=== PATIENT | male | born 1925 | race Caucasian/White ===

== ENCOUNTER 2016-09-29 11:09 | Observation (INO) | payer MEDICARE, BC ==
[2016-09-29] MEDS ORDERED: NS 0.9% 1000 ML* 1,000 ML IV ONE (14:08)
[2016-09-29 14:54] LABS: Urine Bilirubin Negative (Negative); Urine Glucose Negative (Negative); Urine Nitrite Negative (Negative)
[2016-09-29 15:07] LABS: Hematocrit 29 % (42-52); Hemoglobin 9.7 g/dl (14.0-18.0); Mean Corpuscular HGB Conc 34 g/dl (31-36); Mean Corpuscular Hemoglobin 32 pg (27-31); Mean Corpuscular Volume 94 fL (80-94); Mean Platelet Volume 7 um3 (7.4-10.4); Red Blood Count 3.05 10^6/ul (4.0-5.4); Red Cell Distribution Width 13 % (10.5-15)
--- NOTE | 2016-09-29 15:17 | RAD ---
INDICATION: Altered mental status. Pneumonia. COMPARISON: Chest x-ray October 19, 2012 TECHNIQUE: An AP portable view obtained at 1420 hours is submitted. FINDINGS: Bones/Soft Tissues: There are no acute bony findings. There is sternotomy. There is a left-sided cardiac pacemaker Cardiomediastinal: The cardiomediastinal silhouette is mildly enlarged. Lungs: There are no infiltrates. Pleura: There are no pleural effusions. Other: None IMPRESSION: NO ACTIVE CARDIOPULMONARY DISEASE.
[2016-09-29 15:24] LABS: Troponin I 0.03 ng/mL (<0.04)
[2016-09-29 15:30] LABS: ALT 9 U/L (7-52); AST 16 U/L (13-39); Albumin 3.3 g/dL (3.2-5.2); Alkaline Phosphatase 110 U/L (34-104); Anion Gap 6 mmol/L (2-11); BUN/Creatinine Ratio 12.2 (8-20); Blood Urea Nitrogen 21 mg/dL (6-24); CO2 Carbon Dioxide 23 mmol/L (22-32); Calcium 8.6 mg/dL (8.6-10.3); Chloride 99 mmol/L (101-111); Creatine Kinase 113 U/L (10-223); EGFR African American 48.4 (>60); EGFR Non-African American 37.6 (>60); Globulin 2.5 g/dL (2-4); Glucose 81 mg/dL (70-100); Potassium 4.2 mmol/L (3.5-5.0); Sodium 128 mmol/L (133-145); Total Protein 5.8 g/dL (6.4-8.9)
[2016-09-29 15:48] LABS: Alcohol < 10 mg/dL (<10)
--- NOTE | 2016-09-29 16:37 | RAD ---
INDICATION: Altered mental status, expressive aphasia, confusion. COMPARISON: Comparison is made with prior CTs of the brain from June 27, 2015 and October 19, 2012. TECHNIQUE: Contiguous axial sections of the brain were obtained from the skull base to the vertex without contrast. FINDINGS: The ventricles, cisterns and sulci are enlarged consistent with diffuse atrophy. There are multiple focal areas of decreased density in the subcortical and periventricular white matter suggestive of moderate to severe chronic small vessel ischemic changes. There are old bilateral lacunar infarcts present within the external capsules. No other focal abnormality or mass effect is seen. There is no evidence for hemorrhage. There is a mass present in the left maxillary sinus extending into the nasal cavity which appears to have increased in size from the prior 2 exams. The paranasal sinuses and mastoid air cells otherwise appear clear. IMPRESSION: 1. NO EVIDENCE FOR GROSS ACUTE INFARCT, MASS EFFECT OR HEMORRHAGE. 2. ATROPHY, SEVERE CHRONIC SMALL VESSEL ISCHEMIC CHANGES AND OLD LACUNAR INFARCTS. 3. MASS IN THE LEFT MAXILLARY SINUS EXTENDING INTO THE NASAL CAVITY INCREASED IN SIZE.
--- NOTE | 2016-09-29 16:40 | RAD ---
INDICATION: 89-year-old with neck pain. No known trauma COMPARISON: None TECHNIQUE: Noncontrast axial source images was performed from the skull base to the thoracic inlet. Coronal and and sagittal reformatted images were generated. FINDINGS: Vertebrae: There is no fracture or acute focal bony lesion. There is osteopenia. There is advanced degenerative disc disease from C5 through T2 with advanced narrowing, endplate sclerosis, and uncinate process spurring. There is multilevel facet arthropathy. There is multilevel, bilateral foraminal narrowing at these levels. There is moderate degenerative disc disease at C3-C4 and C4-C5 Alignment: The craniocervical junction appears normal. There is a 3 mm anterolisthesis of C4 on C5 which is likely on a degenerative basis. Central Canal: There are no significant CT abnormalities of the central canal or foramina. MR imaging is a more sensitive method to evaluate the canal and foramina. Intervertebral disc spaces: The disc spaces are maintained. Brain: The visualized brain appears unremarkable. Soft tissues: The visualized soft tissue elements of the neck are unremarkable. The prevertebral soft tissues appear normal. The lung apices are clear. IMPRESSION: ADVANCED MULTILEVEL DEGENERATIVE DISC DISEASE. NO ACUTE FINDINGS.
[2016-09-29 17:02] LABS: Magnesium 1.6 mg/dL (1.9-2.7)
[2016-09-29] MEDS ORDERED: oxyCODONE/Acetamin 5/325 MG* TAB PO PRN (17:26)
[2016-09-29] MEDS ORDERED: Acetaminophen TAB* 325 MG PO PRN (17:26)
[2016-09-29] MEDS ORDERED: Fluticasone NASAL SPRAY 50MCG* 16 gm SPRAY BTL BOTH NARES PRN (17:30)
[2016-09-29] MEDS ORDERED: NS 0.9% 1000 ML* 1,000 ML IV SCH (17:30)
[2016-09-29] MEDS ORDERED: Carvedilol TAB* 6.25 MG PO SCH (18:00)
--- NOTE | 2016-09-29 19:22 | ED ---
Silvia Mcintyre Thomas, scribed for Ezra Erazo MD on 09/29/16 at 1314 . Altered Mental Status - HPI Summary HPI Summary: Pt is an 89 y/o male presenting to the ED with AMS. is in the room and is historian of much information. The pt's reports that the pt has been very confused for 24 hours. She says that he will "start a sentence and not be able to finish." She notes that he has had "trouble finding words" in the last 24 hours, but that since his last stroke he has had some minor "trouble finding words" as well. The notes acute on chronic dysuria, worsening 24 hours ago. Additionally c/o dizziness (onset 24 hours) and unstable gait (onset 24 hours). The pt denies arm weakness, DAVILA, blindspots, double vision. Before ED visit, pt was scheduled for a CT Brain, CT neck, and CTA tomorrow. PMHx: CHF, TIA, HLD. PSHx: pacemaker ,CABG, back surgeries. Pt denies PMHx of DM, A-Fib. Pt is on Eliquis, a statin, and meds that decrease his urinary frequency. Pt does not take ASA. Two days ago, the pt fell and only injured his hand. The pt denies head trauma, but the pt's does note that the pt had decreased responsiveness for some time after the fall. Per , the pt's back has been hurting since his fall. The notes that the pt was able to perform finger- nose touches yesterday. - History Of Current Complaint Chief Complaint: EDAltMentalStatus Stated Complaint: AMS,DIZZY,CANT UNRINATE Time Seen by Provider: 09/29/16 12:41 Hx Obtained From: Patient, Family/Bone Drier Operator - Last Known Well Date: Sx started 24 hours ago Character: Confusion Aggravating Factor(s): Nothing Alleviating Factor(s): Nothing Associated Signs And Symptoms: Positive: Dizziness - Allergies/Home Medications Allergies/Adverse Reactions: Allergies Allergy/AdvReac Type Severity Reaction Status Date / Time No Known Allergies Allergy Verified 05/08/14 14:36 Home Medications: Home Medications Bupropion XL* [Wellbutrin XL *] 150 mg PO DAILY 09/29/16 [History Confirmed ] Febuxostat(NF) [Uloric(NF)] 40 mg PO DAILY 09/29/16 [History Confirmed 09/29/16] Fluticasone NASAL SPRAY 50MCG* [Flonase NASAL SPRAY 50MCG*] 2 spray BOTH NARES DAILY PRN 09/29/16 [History Confirmed 09/29/16] Pantoprazole TAB (NF) [Protonix TAB (NF)] 40 mg PO BID 09/29/16 [History Confirmed 09/29/16] Sucralfate SUSP (NF) [Carafate SUSP (NF)] 10 ml PO BID 09/29/16 [History Confirmed 09/29/16] Tamsulosin CAP* [Flomax CAP*] 0.4 mg PO DAILY 09/29/16 [History Confirmed ] PMH/Surg Hx/FS Hx/Imm Hx Previously Healthy: No Endocrine/Hematology History: Reports: Hx Anticoagulant Therapy - COUMADIN, Hx Anemia Denies: Hx Diabetes, Hx Thyroid Disease Cardiovascular History: Reports: Hx Congestive Heart Failure, Hx Coronary Artery Disease, Hx Hypercholesterolemia, Hx Pacemaker/ICD - 2002, Other Cardiovascular Problems/Disorders - cardiomyopathy, CVA, CAROTID ENDARTECTOMY, ABLATION Denies: Hx Hypertension Respiratory History: Reports: Hx Sleep Apnea - CPap Denies: Hx Asthma, Hx Chronic Obstructive Pulmonary Disease (COPD) GI History: Reports: Hx Gastrointestinal Bleed, Other GI Disorders - GI Bleed in the past Denies: Hx Ulcer History: Reports: Hx Chronic Renal Failure - stage III, Hx Renal Disease - low potassium diet as per Dr Altman, Other Problems/Disorders - Renal insufficiency Musculoskeletal History: Reports: Hx Arthritis, Hx Back Problems - back surgery , Hx Gout Comment Only: Other Musculoskeletal History - GOUT Sensory History: Reports: Hx Contacts or Glasses, Hx Deafness Denies: Hx Hearing Aid Opthamlomology History: Reports: Hx Contacts or Glasses Neurological History: Reports: Hx Transient Ischemic Attacks (TIA) - Surgical History Surgery Procedure, Year, and Place: CABG , CARTID ENDARTECTOMY, ABLATION, PACEMAKER, BACK SX. Infectious Disease History: No Infectious Disease History: Denies: Hx Clostridium Difficile, Hx Hepatitis, Hx Human Immunodeficiency Virus (HIV), Hx of Known/Suspected MRSA, Hx Shingles, Hx Tuberculosis, Hx Known/ Suspected VRE, Hx Known/Suspected VRSA, History Other Infectious Disease, Traveled Outside the [place] in Last 30 Days - Family History Known Family History: Negative: Cardiac Disease, Diabetes - Social History Alcohol Use: None Substance Use Type: Reports: None Smoking Status (MU): Never Smoked Tobacco Review of Systems Positive: Other - NEG: blindspots . Negative: Diplopia Positive: dysuria - acute on chronic Neurological: Other - POS: confusion; POS: "trouble finding words"; POS: dizziness; POS: unstable gait Negative: Weakness - arm All Other Systems Reviewed And Are Negative: Yes Physical Exam - Summary Physical Exam Summary: The patient is well-nourished in no acute distress and in no acute pain. The skin is warm and dry and skin color reflects adequate perfusion. Ecchymosis on the R PSIS. HEENT: Tongue midline. The head is normocephalic and atraumatic. The pupils are equal and reactive. The conjunctivae are clear and without drainage. Nares are patent and without drainage. Mouth reveals moist mucous membranes and the throat is without erythema and exudate. The external ears are intact. The patient has a hearing aid. Neck is supple with full range of motion and non-tender. There are no carotid bruits. There is no neck vein distension. Respiratory: Chest is non-tender. Lungs are clear to auscultation and breath sounds are symmetrical and equal. Cardiovascular: There is a holosystolic murmur. Hear is regular rate and rhythm. No rub auscultated. There is no peripheral edema and pulses are symmetrical and equal. Abdomen: The abdomen is soft and non-tender. There are normal bowel sounds heard in all four quadrants and there is no organomegaly palpated. Musculoskeletal: There is no back pain noted. Extremities are non-tender with full range of motion. There is good capillary refill. There is no peripheral edema or calf tenderness elicited. Neurological: Confused. Knows the day of week but not month. Does not know birthday. Expressive aphasia. Able to finger-nose his R hand but not L hand. Cannot do heel-schofield. No facial droop. The patient has symmetrical motor strength in all four extremities. Cranial nerves are grossly intact except deglutition. Deep tendon reflexes are symmetrical and equal in all four extremities. No protonator drift. Psychiatric: The patient has an appropriate affect and does not exhibit any anxiety or depression. Triage Information Reviewed: Yes Vital Signs On Initial Exam: Initial Vitals Temp Pulse Resp BP 97.9 F 80 20 121/61 09/29/16 11:15 09/29/16 11:15 09/29/16 11:15 09/29/16 11:15 Vital Signs Reviewed: Yes - Miguel Coma Scale Coma Scale Total: 14 Diagnostics - Vital Signs Vital Signs Temp Pulse Resp BP Pulse Ox 09/29/16 12:04 98.1 F 80 16 136/68 100 09/29/16 11:15 97.9 F 80 20 121/61 - Laboratory Lab Results: Lab Results 09/29/16 09/29/16 09/29/16 Range/Units 14:42 14:56 14:56 WBC 6.0 (3.5-10.8) 10^3/ul RBC 3.05 L (4.0-5.4) 10^6/ul Hgb 9.7 L (14.0-18.0) g/dl Hct 29 L (42-52) % MCV 94 (80-94) fL MCH 32 H (27-31) pg MCHC 34 (31-36) g/dl RDW 13 (10.5-15) % Plt Count 166 (150-450) 10^3/ul MPV 7 L (7.4-10.4) um3 Neut % (Auto) 64.3 (38-83) % Lymph % (Auto) 21.3 L (25-47) % Stewart % (Auto) 8.2 (1-9) % Eos % (Auto) 5.1 (0-6) % Baso % (Auto) 1.1 (0-2) % Absolute Neuts (auto) 3.8 (1.5-7.7) 10^3/ul Absolute Lymphs (auto) 1.3 (1.0-4.8) 10^3/ul Absolute Monos (auto) 0.5 (0-0.8) 10^3/ul Absolute Eos (auto) 0.3 (0-0.6) 10^3/ul Absolute Basos (auto) 0.1 (0-0.2) 10^3/ul Absolute Nucleated RBC 0 10^3/ul Nucleated RBC % 0 INR (Anticoag Therapy) 1.32 H (0.89-1.11) Sodium (133-145) mmol/L Potassium (3.5-5.0) mmol/L Chloride (101-111) mmol/L Carbon Dioxide (22-32) mmol/L Anion Gap (2-11) mmol/L BUN (6-24) mg/dL Creatinine (0.67-1.17) mg/dL Est GFR ( Amer) (>60) Est GFR (Non-Af Amer) (>60) BUN/Creatinine Ratio (8-20) Glucose (70-100) mg/dL Lactic Acid (0.5-2.0) mmol/L Calcium (8.6-10.3) mg/dL Magnesium (1.9-2.7) mg/dL Total Bilirubin (0.2-1.0) mg/dL AST (13-39) U/L ALT (7-52) U/L Alkaline Phosphatase (34-104) U/L Ammonia (16-53) mol/L Total Creatine Kinase (10-223) U/L Troponin I (<0.04) ng/mL C-Reactive Protein (< 5.00) mg/L Total Protein (6.4-8.9) g/dL Albumin (3.2-5.2) g/dL Globulin (2-4) g/dL Albumin/Globulin Ratio (1-3) Urine Color Yellow Urine Appearance Clear Urine pH 6.0 (5-9) Ur Specific Shunk 1.006 L (1.010-1.030) Urine Protein Negative (Negative) Urine Ketones Negative (Negative) Urine Blood Negative (Negative) Urine Nitrate Negative (Negative) Urine Bilirubin Negative (Negative) Urine Urobilinogen Negative (Negative) Ur Leukocyte Esterase Negative (Negative) Urine Glucose Negative (Negative) Serum Alcohol (<10) mg/dL 09/29/16 09/29/16 09/29/16 Range/Units 14:56 14:56 14:56 WBC (3.5-10.8) 10^3/ul RBC (4.0-5.4) 10^6/ul Hgb (14.0-18.0) g/dl Hct (42-52) % MCV (80-94) fL MCH (27-31) pg MCHC (31-36) g/dl RDW (10.5-15) % Plt Count (150-450) 10^3/ul MPV (7.4-10.4) um3 Neut % (Auto) (38-83) % Lymph % (Auto) (25-47) % Stewart % (Auto) (1-9) % Eos % (Auto) (0-6) % Baso % (Auto) (0-2) % Absolute Neuts (auto) (1.5-7.7) 10^3/ul Absolute Lymphs (auto) (1.0-4.8) 10^3/ul Absolute Monos (auto) (0-0.8) 10^3/ul Absolute Eos (auto) (0-0.6) 10^3/ul Absolute Basos (auto) (0-0.2) 10^3/ul Absolute Nucleated RBC 10^3/ul Nucleated RBC % INR (Anticoag Therapy) (0.89-1.11) Sodium 128 L (133-145) mmol/L Potassium 4.2 (3.5-5.0) mmol/L Chloride 99 L (101-111) mmol/L Carbon Dioxide 23 (22-32) mmol/L Anion Gap 6 (2-11) mmol/L BUN 21 (6-24) mg/dL Creatinine 1.72 H (0.67-1.17) mg/dL Est GFR ( Amer) 48.4 (>60) Est GFR (Non-Af Amer) 37.6 (>60) BUN/Creatinine Ratio 12.2 (8-20) Glucose 81 (70-100) mg/dL Lactic Acid 0.7 (0.5-2.0) mmol/L Calcium 8.6 (8.6-10.3) mg/dL Magnesium 1.6 L (1.9-2.7) mg/dL Total Bilirubin 1.00 (0.2-1.0) mg/dL AST 16 (13-39) U/L ALT 9 (7-52) U/L Alkaline Phosphatase 110 H (34-104) U/L Ammonia 25 (16-53) mol/L Total Creatine Kinase 113 (10-223) U/L Troponin I 0.03 (<0.04) ng/mL C-Reactive Protein 2.80 (< 5.00) mg/L Total Protein 5.8 L (6.4-8.9) g/dL Albumin 3.3 (3.2-5.2) g/dL Globulin 2.5 (2-4) g/dL Albumin/Globulin Ratio 1.3 (1-3) Urine Color Urine Appearance Urine pH (5-9) Ur Specific Shunk (1.010-1.030) Urine Protein (Negative) Urine Ketones (Negative) Urine Blood (Negative) Urine Nitrate (Negative) Urine Bilirubin (Negative) Urine Urobilinogen (Negative) Ur Leukocyte Esterase (Negative) Urine Glucose (Negative) Serum Alcohol < 10 (<10) mg/dL Result Diagrams: 09/29/16 14:56 09/29/16 14:56 Lab Statement: Any lab studies that have been ordered have been reviewed, and results considered in the medical decision making process. - Radiology CXR Xray Interpretation: No Acute Changes - NO ACTIVE CARDIOPULMONARY DISEASE. Radiology Interpretation Completed By: Radiologist - CT Brain CT CT Interpretation: No Acute Changes - 1. NO EVIDENCE FOR GROSS ACUTE INFARCT, MASS EFFECT OR HEMORRHAGE. 2. ATROPHY, SEVERE CHRONIC SMALL VESSEL ISCHEMIC CHANGES AND OLD LACUNAR INFARCTS. 3. MASS IN THE LEFT MAXILLARY SINUS EXTENDING INTO THE NASAL CAVITY INCREASED IN SIZE. CT Interpretation Completed By: Radiologist CT C-Spine CT Interpretation: No Acute Changes - ADVANCED MULTILEVEL DEGENERATIVE DISC DISEASE. NO ACUTE FINDINGS. CT Interpretation Completed By: Radiologist - EKG 1415 Cardiac Rate: NL - 80 bpm EKG Interpretation: Paced rhythm Altered Mental Statu Course/Dx - Course Assessment/Plan: Pt is an 89 y/o male presenting to the ED with AMS. is in the room and is historian of much information. The pt's reports that the pt has been very confused for 24 hours. She notes that he has had "trouble finding words" in the last 24 hours, but that since his last stroke he has had some minor "trouble finding words" as well. The notes acute on chronic dysuria, worsening 24 hours ago. Additionally c/o dizziness (onset 24 hours) and unstable gait (onset 24 hours). The pt denies arm weakness, DAVILA, blindspots, double vision. Before ED visit, pt was scheduled for a CT Brain, CT neck, and CTA tomorrow. PMHx: TIA. Pt denies PMHx of DM, A-Fib. Pt is on Eliquis, a statin , and meds that decrease his urinary frequency. Pt does not take ASA. Two days ago, the pt fell and only injured his hand. The pt denies head trauma, but the pt's does note that the pt had decreased responsiveness for some time after the fall. Per , the pt's back has been hurting since his fall. The notes that the pt was able to perform finger-nose touches yesterday. refused to allow CTA. UA revealsCXR, Brain CT and C-Spine CT reveal no acute findings. EKG reveals paced rhythm. Discussed care of patient with Dr. Alas who accepts pt for admission. Pt will be admitted with Dx of confusion and expressive aphasia. - Diagnoses Differential Diagnosis/HQI/PQRI: CVA, Intracranial Bleed, Metabolic Disorder, Sepsis, TIA Discharge Diagnoses: Confusion, Expressive aphasia - Provider Notifications Discussed Care Of Patient With: Kathya Alas Time Discussed With Above Provider: 14:35 Instructed by Provider To: Other - Discussed case with hospitalist. Awaiting results of labs. Discharge - Discharge Plan Condition: Stable Disposition: ADMITTED TO [facility] documentation as recorded by the Silvia enriquez Thomas accurately reflects the service I personally performed and the decisions made by me, Ezra Erazo MD.
--- NOTE | 2016-09-29 20:23 | HP ---
ADDENDUM NOW INCLUDED ON THIS REPORT CC: Dr. Sanchez; Dr. Brian; Dr. Garcia; Aydee Silva NP from Cardiology in [place]; Dr. Mariscal * HISTORY AND PHYSICAL: DATE OF ADMISSION: 09/29/16 PRIMARY CARE PROVIDER: Dr. Sanchez. CHIEF COMPLAINT: Dizziness. HISTORY OF PRESENT ILLNESS: Mr. Hart has a history of dizziness for several months now. He is undergoing physical therapy at home and despite that, it is not getting any better. He states in fact that it is getting worse. He was evaluated by Dr. Brian yesterday who recommended CT of the brain as well as CT of the cervical spine and vitamin B12, TSH, and folate levels. The patient continues to be dizzy, in fact he complains to his that he is dizzy when he is lying down or sitting up. Apparently, activity meaning getting up or walking makes him more "dizzy," but he himself is a very poor historian and forgetful and is unable to tell me or explain his dizziness. He is unable to tell me if the room is spinning or he feels like he is "on a ship." He just continues to repeat himself saying that he is "dizzy." Currently, when he is lying in the hospital bed, he tells his when she questions him in front of me that he is "not dizzy." The patient himself defers to his when I am trying to gather the history of his problems. Apparently 2 days ago, he woke up in the middle of the night to go to the bathroom and he fell. He apparently did not use his walker that was recommended by both his primary care physician and his neurologist. In July 2016, he saw Ms. Silva, his access services librarian, who stated most likely his problems with dizziness are not related to cardiac issues. A subsequent transthoracic echocardiogram was performed which showed EF of 30% to 35% and aortic valve area of 1.5. Although Lasix is on patient's list to take on a daily basis, the patient's stated that he uses it only on p.r.n. basis and she has not used it for her for the past 3 weeks. The patient had been at his baseline weight of 176 pounds. Another problem is his urination. Apparently, the patient "gets up all the time to go to the bathroom to urinate" per his . He has an appointment with a urologist in a week for cystoscopy. His requested to check his postvoid residual to see if he retains urine. She is also surprised that her does not have any urinary tract infection according to today's urinalysis. Basically, the patient's is requesting an observation overnight in regards of chronic dizziness that has progressed. Apparently, nothing out of ordinary happened in the past 24 hours as the patient saw Dr. Brian apart from the patient getting "more dizzy" which he himself cannot explain. Here in the emergency department, he was noted to be slightly hyponatremic and he already received 1 L of intravenous fluids. At this point, he is going to be observed on telemetry monitored bed. I asked Dr. Garcia to see the patient from Neurology. He is also going to be placed on gentle intravenous hydration. PAST MEDICAL HISTORY: Extensive, and includes: 1. Chronic left bundle branch block. 2. Chronic atrial fibrillation, but his rhythm currently is paced. 3. History of pacemaker placement for sinoatrial node dysfunction. 4. History of aortic stenosis with aortic valve area calculated at 1.5 cm in July 2016. 5. History of ischemic cardiomyopathy with EF of 30% to 35%. 6. History of chronic diastolic and systolic CHF. Currently, he had not required Lasix for the past 3 weeks and he set his goal weight at 176 pounds. 7. Status post coronary artery bypass grafting. 8. History of left-sided carotid endarterectomy. 9. History of laminectomy at L3-L5. 10. History of spinal stenosis without neurogenic claudication. 11. History of hypertension. 12. History of gout. 13. History of CVA in the past. 14. Dyslipidemia. 15. Osteoporosis. 16. Chronic kidney disease stage 3. 17. History of postural hypotension. MEDICATIONS: Include: 1. Protonix 40 mg b.i.d. 2. Eliquis 2.5 mg b.i.d. 3. Simvastatin 20 mg daily. 4. Ferrous sulfate 325 mg b.i.d. 5. Coreg 3.125 mg in the morning and 6.25 mg at night. 6. Uloric 40 mg daily. 7. Lasix 20 mg on the days when the patient's weight is above 179 pounds. The patient has not used it for the past 3 weeks. 8. Scopolamine 1.5 mg patch transdermally started yesterday. 9. Bupropion ER 150 mg daily. 10. Fluticasone 50 mcg daily as needed. FAMILY HISTORY: Positive for both parents with heart disease. The patient's mother had history of metastatic skin cancer. SOCIAL HISTORY: The patient denies any tobacco, alcohol, or drug use. He is retired and lives with his who is his surrogate. REVIEW OF SYSTEMS: Please see history of present illness. Positive for dizziness. Further, the patient is unable to describe it, worse with change of position and worse with walking though. Negative for shortness of breath and chest pain. The patient's weight had been at his goal at 176 pounds and he had not been on his diuretics. The patient stated that he was evaluated by urologist and he is planned for cystoscopy next week. The patient also was seen by Dr. Mariscal recently for sinus infection and was on antibiotics in the recent past for that. Nevertheless, the patient continues to have discharge from his nose that is chronic and purulent. His appetite had been good. Review of systems is positive also for nocturia and urinary urgency. The patient's memory is also "not good" and the patient was noted to have impaired cognition on Dr. Brian's evaluation the day prior. All the remaining 14 systems were reviewed with the patient and the patient's and were otherwise negative. PHYSICAL EXAMINATION GENERAL: The patient is an 89-year-old male who is in no acute distress. The patient is alert and oriented x2. He is very forgetful and a poor historian. HEENT: Head: Atraumatic, normocephalic. Eyes: Pupils equal, reactive to light and accommodation. Oropharynx clear. Mucosa moist. NECK: Supple. No JVD, no bruit bilaterally. RESPIRATORY: Clear to auscultation bilaterally. CARDIOVASCULAR: Regular rate and rhythm. Noted to be paced on implementation technician; 3/6 systolic ejection murmur on auscultation of right upper sternal border radiating to bilateral carotids. ABDOMEN: Soft, nontender. Bowel sounds present in all 4 quadrants. EXTREMITIES: There is no edema. Pulses are +2 bilaterally. No clubbing or cyanosis. NEUROLOGIC EVALUATION: Speech clear. Cranial nerves II through XII grossly intact. Motor strength is 5/5 bilaterally. Gait not evaluated. PSYCHIATRIC EVALUATION: Forgetful, but pleasant and cooperative with no evidence of anxiety or depression. DIAGNOSTIC STUDIES/LAB DATA: Shows white blood cell count of 6.0, hemoglobin of 9.7, hematocrit of 29, and platelets of 166. Sodium was 138, potassium 4.2, chloride 99, carbon dioxide 23, BUN 21, creatinine 1.72. Creatinine is at the patient's baseline. Urinalysis shows low specific gravity of 1.006. Otherwise was within normal limits. Cervical spine CT, impression: "Advanced multilevel degenerative disk disease. No acute findings." Portable chest x-ray, impression: "No active cardiopulmonary disease." Brain CT, impression: "No evidence for gross acute infarct, mass effect, or hemorrhage. Atrophy. Severe chronic small vessel ischemic changes and old lacunar infarcts. Mass in the left maxillary sinus extending into the nasal cavity increased in size." The patient's EKG shows paced right ventricular rhythm with a heart rate of 80 beats per minute. This is comparable with prior EKGs. ASSESSMENT AND PLAN: 1. "Dizziness:" Unfortunately, the patient is a very poor historian and he has problems explaining what the dizziness is. Nevertheless, it seems like it is a sensation that gets worse when he stands up or gets more physically active although it also occurs when he is stationary. At this point, the differential is broad and "neuro versus cardiac issues." Also of course that it is subacute to chronic since it has been going on for at least 6 months and the patient also underwent physical therapy for it. At this point, the patient is going to be placed on overnight observation on telemetry monitored bed. I asked Dr. Garcia to see the patient in Neurology consultation. It is plausible that the patient has aortic stenosis with aortic valve area of 1.5 cm and EF of 30% that may be enough for the patient to have symptomatic aortic stenosis. With his mild hyponatremia, it is possible that he is prerenal which makes his aortic stenosis more symptomatic. I will continue gentle intravenous hydration overnight and evaluate with physical therapy in the morning. Nevertheless, I did tell the patient and the patient's that the patient needs to ambulate with a rolling walker which he had not done despite his doctor's recommendations. 2. In regards to the patient's anemia with hemoglobin of 9.7, it is chronic, normocytic, and with a level consistent with prior. 3. The patient has chronic kidney disease stage 3 with creatinine at baseline today. 4. Congestive heart failure: The patient has been off his diuretic and he is at his baseline weight. At this point, no further action is necessary. 5. In regards to the patient's aortic stenosis as mentioned above; by calculation of the valvular area of 1.5, it is not severe. Nevertheless, it may be symptomatic in a patient with low EF and prerenal status. 6. The patient's hyponatremia appears to be prerenal. I will start intravenous fluids and recheck the levels in the morning. 7. In regards to history of nocturia and urinary urgency, the patient's urinalysis is unremarkable. He may have urinary retention. He already plans to see urologist as an outpatient. At this point, I will obtain urine postvoid residual and if it is high, we will place a Madrid catheter until the patient sees his urologist as an outpatient. 8. For DVT prophylaxis, the patient is already on Eliquis. 9. The patient's atrial fibrillation is currently paced on Eliquis. Eliquis is going to be continued. 10. The patient's code status is full and his surrogate is his . TIME SPENT: Approximately 72 minutes was spent on admission of this patient, more than half that time was spent [id number] with the patient during the interview and physical exam. ADDENDUM: ASSESSMENT AND PLAN: In regards to the patient's right sinus mass. Apparently , it was present on prior CTs and the patient was unaware of that. The patient had seen Dr. Mariscal in the past and recommended for the patient to see Dr. Mariscal as outpatient in regards to that. [id number]/CPS #: [id number]/CPS #: [id number] SIMONE
[2016-09-29] MEDS: Ferrous Sulfate TAB* 325 MG PO SCH (22:49)
[2016-09-29] MEDS: Docusate CAP* 100 MG PO SCH (22:49)
[2016-09-29] MEDS: Apixaban* 2.5 MG TAB PO SCH (22:49)
--- NOTE | 2016-09-30 02:58 | HP ---
CC: Dr. Mariscal * HISTORY AND PHYSICAL: DATE OF ADMISSION: 09/29/16 ADDENDUM: ASSESSMENT AND PLAN: In regards to the patient's right sinus mass. Apparently , it was present on prior CTs and the patient was unaware of that. The patient had seen Dr. Mariscal in the past and recommended for the patient to see Dr. Mariscal as outpatient in regards to that. [id number]/[facility] #: [id number] MTDD
[2016-09-30 06:30] LABS: BUN/Creatinine Ratio 11.6 (8-20); Calcium 8.4 mg/dL (8.6-10.3); EGFR African American 45.6 (>60); EGFR Non-African American 35.5 (>60); Potassium 4.3 mmol/L (3.5-5.0)
[2016-09-30] MEDS: Docusate CAP* 100 MG PO SCH (08:53)
[2016-09-30] MEDS: Apixaban* 2.5 MG TAB PO SCH (08:53)
[2016-09-30] MEDS: Ferrous Sulfate TAB* 325 MG PO SCH (08:53)
[2016-09-30] MEDS ORDERED: Carvedilol TAB* 3.125 MG PO SCH (09:00)
[2016-09-30] MEDS ORDERED: Tamsulosin CAP* 0.4 MG PO SCH (09:00)
[2016-09-30] MEDS ORDERED: BuPROPion XL* 150 MG TAB.XL PO SCH (09:00)
[2016-09-30] MEDS ORDERED: Febuxostat(NF) 40 MG TAB PO SCH (09:00)
[2016-09-30] MEDS ORDERED: Atorvastatin* 10 MG TAB PO SCH (09:00)
[2016-09-30] MEDS ORDERED: Scopolamine 1.5 mg* PATCH TRANSDERM SCH (12:00)
[2016-09-30 14:30] VITALS: BP 132/54
--- NOTE | 2016-09-30 23:19 | DS ---
CC: Fam Sanchez MD; Kendra Brian MD; Jose Raul Mariscal MD * DISCHARGE SUMMARY: DATE OF ADMISSION: 09/29/16 DATE OF DISCHARGE: 09/30/16 PRIMARY CARE PROVIDER: Fam Sanchez MD NEUROLOGIST: Kendra Brian MD ENT: Jose Raul Mariscal MD PRIMARY DIAGNOSES: 1. Vertigo. 2. Urinary retention. 3. Left maxillary mass. SECONDARY DIAGNOSES: 1. Dementia. 2. Left bundle branch block. 3. Atrial fibrillation. 4. Aortic stenosis. 5. Ischemic cardiomyopathy with chronic stable systolic heart failure. 6. Coronary artery disease. 7. Hypertension. 8. Gout. 9. History of cerebrovascular accident. 10. Dyslipidemia. 11. Osteoporosis. 12. Chronic kidney disease. MEDICATIONS ON DISCHARGE: Protonix 40 mg twice daily, Carafate 10 mL twice daily, Coreg 3.125 mg in the morning and 6.25 mg at night, Uloric 40 mg daily, bupropion XL 150 mg daily, Eliquis 2.5 mg twice daily, Flomax 0.4 mg daily, fluticasone nasal spray 2 sprays both nares daily, ferrous sulfate 325 mg twice daily, Lasix 20 mg daily as needed, simvastatin 20 mg daily, scopolamine 1.5 mg patch, change every 3 days, acetaminophen 650 mg every 4 hours as needed for pain or fever, not to exceed 4000 mg in the 24-hour period. PERTINENT IMAGING STUDIES: CT brain. Impression: No evidence for gross acute infarct, mass effect, or hemorrhage. Atrophy, severe chronic small vessel ischemic changes and old lacunar infarcts. Mass in the left maxillary sinus extending into the nasal cavity, increased in size compared to 06/27/15. CT cervical spine, advancing multilevel degenerative disk disease. No acute findings. HISTORY OF PRESENT ILLNESS AND HOSPITAL COURSE: This is a pleasant 89-year-old gentleman, past medical history as outlined in the history of present illness on the day of admission including fairly advanced dementia, mini mental 11/[address] Brian this week, who has been in his usual state of health except for advancing vertiginous symptoms over the last 6 months, for which she has participated in PT without resolution. He was seen in conjunction with Dr. Brian this week. For continued symptoms, the patient and his presented to the emergency room. Diagnoses has been hindered by patient's advanced dementia, making accurate recall of symptomatology difficult. The patient has also been followed up with ENT as well as Urology. Seen on the day of discharge , the patient's symptoms had completely resolved. does note the recent initiation of scopolamine by Dr. Sanchez 2 days prior to presenting. Additionally, an enlarging mass in the left maxillary sinus was noted on the CT of his head. For this reason, the patient's is requesting referral back to see Dr. Mariscal, with which this author agrees. There are no complications during this patient's hospital stay. On the day of discharge, he has followup with Dr. Brian and Dr. Sanchez, both within the next week. There is some concern that advancing aortic stenosis may contribute to the patient's symptomatology. Again, review of symptoms is difficult as at times the lightheadedness is described as worse with exertion and at others, unrelated to exertion. At followup, please: 1. Followup on enlarging maxillary mass. 2. Followup on symptomatology with the addition of scopolamine. 3. No other specific labs or vitals that need followups. Reasons to return to the hospital including, but not limited to, recurrent or worsening symptoms of chest pain, shortness of breath, nausea, vomiting, loss of consciousness, near loss of consciousness. Discussed with the patient and his , she acknowledged understanding. TIME SPENT: Greater than 45 minutes was spent on the discharge of this patient. [id number]/[facility] #: [id number] MTDD
[2016-10-03] MEDS ORDERED: Scopolomine PATCH Remove* 1 NOTE MISC PATCH OFF SCH (12:00)
== END 2016-09-30 16:34 | disposition home or self-care (01) ==
LOC: ED 11:09 → MEDTELE 16:31
PROVIDERS: ADMIT Internal Medicine; ATTEND Internal Medicine
DX: R42 Dizziness and giddiness (principal); R33.9 Retention of urine, unspecified; J32.8 Other chronic sinusitis; I44.7 Left bundle-branch block, unspecified; I13.0 Hypertensive heart and chronic kidney disease with heart failure and stage 1 through stage 4 chronic kidney disease, or unspecified chronic kidney disease; N18.9 Chronic kidney disease, unspecified; I50.22 Chronic systolic (congestive) heart failure; I48.91 Unspecified atrial fibrillation; Z79.01 Long term (current) use of anticoagulants; I35.0 Nonrheumatic aortic (valve) stenosis; I42.9 Cardiomyopathy, unspecified; I25.10 Atherosclerotic heart disease of native coronary artery without angina pectoris; M10.9 Gout, unspecified; E78.5 Hyperlipidemia, unspecified; M50.30 Other cervical disc degeneration, unspecified cervical region; Z86.73 Personal history of transient ischemic attack (TIA), and cerebral infarction without residual deficits; Z79.899 Other long term (current) drug therapy; R94.31 Abnormal electrocardiogram [ECG] [EKG]
CPT/HCPCS: 36415; 70450; 71010; 72125; 80048; 80053; 80320; 81003; 82140; 82550; 83605; 83735; 84484; 85025; 85610; 86140; 93005; 99284; A9270-GY; G0378; G0480